=== PATIENT | female | born 1965 | race Caucasian/White ===

== ENCOUNTER 2025-01-13 12:04 | Emergency (ER) | payer MEDICAID ==
[~2025-01-13] VITALS: Ht 170.2 cm; Wt 68.0 kg
[2025-01-13 12:07] VITALS: O2SAT 97
[2025-01-13 12:38] LABS: HEMATOCRIT. 35.1 % (36.0-48.0); HEMOGLOBIN. 11.9 g/dL (12.0-16.0); MEAN CORPUSCULAR HEMOGLOBIN 31.5 pg (28.0-32.0); MEAN CORPUSCULAR HGB CONC 33.8 g/dL (31.0-37.0); MEAN CORPUSCULAR VOLUME 93.2 fL (81.0-99.0); PLATELET 249 x1000/uL (130-400); RED BLOOD CELL COUNT 3.77 mill/uL (4.2-5.4); RED CELL DISTRIBUTION WIDTH 13.5 % (11.6-14.6)
[2025-01-13 12:45] LABS: CHLORIDE 102 mEq/L (98-107); POTASSIUM 3.6 mEq/L (3.5-5.1); SODIUM 135 mEq/L (136-145)
[2025-01-13 12:46] LABS: CALCIUM 9.1 mg/dL (8.7-10.4); CARBON DIOXIDE 28 mEq/L (21-32)
[2025-01-13 12:48] LABS: DIFFERENTIAL COMMENT 1
[2025-01-13] MEDS: SODIUM CHLORIDE 0.9% 1,000 ML IV ONE (12:49)
[2025-01-13 12:51] LABS: CREATININE 0.7 mg/dL (0.6-1.0); GLUCOSE 105 mg/dL (70-105); UREA NITROGEN BLOOD 20 mg/dL (9-23)
[2025-01-13 13:15] LABS: D-DIMER 0.51 mg/L FEU (<0.50); INR 0.9
[2025-01-13 13:26] LABS: PLATELET ESTIMATE NORMAL
[2025-01-13 13:54] LABS: TROPONIN I HIGH SENSITIVITY < 4 ng/L (3.0-34)
[2025-01-13 15:36] LABS: TROPONIN I HIGH SENSITIVITY < 4 ng/L (3.0-34)
[2025-01-13 17:36] VITALS: BP 104/57; PULSE 66; RESP 20; TEMP 36.8; O2SAT 97
== END 2025-01-13 17:51 | disposition home or self-care (01) ==
LOC: ER 12:04
DX: R07.89 Other chest pain (principal); R42 Dizziness and giddiness; Z79.899 Other long term (current) drug therapy
CPT/HCPCS: 80048; 83880; 83735; 85025; 85379; 85610; 86850; 86900; 86901; 84484; 36415; 71045; 93005; 99285; J7030; Z7610 ×3; A4606